=== PATIENT | female | born 1995 | race Caucasian/White ===

== ENCOUNTER 2018-07-16 14:14 | Emergency (ER) | payer BC ==
[~2018-07-16] VITALS: Ht 177.8 cm; Wt 57.2 kg
[2018-07-16 14:14] VITALS: BP 114/65
[2018-07-16 14:41] LABS: BASOPHILS # (AUTO) 0.1 /CMM (0.0-0.2); BASOPHILS % (AUTO) 1.1 % (0.0-2.0); EOSINOPHILS % (AUTO) 2.3 % (0.0-6.0); HEMATOCRIT 38 % (33-45); HEMOGLOBIN 12.6 g/dL (11.5-14.8); LYMPHOCYTES # (AUTO) 2.3 /CMM (0.8-4.8); LYMPHOCYTES % (AUTO) 32.6 % (20.0-44.0); MEAN CORPUSCULAR HEMOGLOBIN 29 PG (26.0-33.0); MEAN CORPUSCULAR HGB CONC 33 g/dl (31.0-36.0); MEAN CORPUSCULAR VOLUME 88 fL (82-100); MONOCYTES # (AUTO) 0.6 /CMM (0.1-1.30); NEUTROPHILS # (AUTO) 3.8 /CMM (1.8-8.9); PLATELET COUNT (AUTO) 227 /CMM (150-450); RDW COEFFICIENT OF VARIATION 12.4 (11.5-15.0); RED BLOOD CELL COUNT(AUTO) 4.36 MIL/uL (4.0-5.2)
== END 2018-07-16 15:30 | disposition home or self-care (01) ==
LOC: ER 14:18
DX: R59.0 Localized enlarged lymph nodes (principal)
CPT/HCPCS: 36415; 85025; 99283; A4606; Z7610